=== PATIENT | female | born 1995 | race Caucasian/White ===

== ENCOUNTER 2016-11-12 01:18 | Emergency (ER) | payer BC ==
[~2016-11-12] VITALS: Ht 162.6 cm; Wt 49.4 kg
[2016-11-12 01:22] VITALS: TEMP 37; Ht 162.6 cm; Wt 49.4 kg
[2016-11-12] MEDS ORDERED: XYLOCAINE 1%/SOD BICARB 20 ML VIAL INFIL ONE (01:45)
[2016-11-12 03:12] VITALS: BP 108/77; PULSE 88; O2SAT 100
--- NOTE | 2016-11-12 06:22 | EMERGENCY ROOM VISIT NOTE ---
ED Visit Note First contact with patient: 01:35 CHIEF COMPLAINT: Finger laceration HISTORY OF PRESENT ILLNESS: This 21 year old female patient presents to the emergency department after cutting the right second finger on a beer bottle this evening. The bleeding has stopped. Denies weakness or numbness of the finger. The patient has full range of motion of the fingers. The patient rates the pain as dull and 7/10. The patient denies any other injuries. The patient' s tetanus shot is reportedly up to date. REVIEW OF SYSTEMS: A 6 system review of systems was completed with positives and pertinent negatives listed in the HPI. ALLERGIES: No known allergies MEDICATIONS: No chronic medications PMH: Otherwise healthy SOCIAL HISTORY: Student who lives locally PHYSICAL EXAM: Vital Signs: Reviewed Nurse's notes, vital signs stable. GENERAL : White female, in no acute distress, well developed, well nourished. SKIN: There is a 5 cm long laceration on the palmar aspect of the right 2nd finger. The edges gape apart with traction. There is no foreign material in the wound and it looks clean. There is no significant bleeding. No deep structures such as tendons, bones, or significant blood vessels are seen in the base of the wound. Extension and flexion of the finger is full and strong. Full range of motion of the wrist and other fingers. Capillary refill less than 2 seconds. Normal sensation to light and sharp touch. EMERGENCY DEPARTMENT COURSE: I examined the patient. Verbal consent was obtained to perform the procedure. Using sterile technique the wound was cleansed with Betadine. 4 ml of 1% buffered lidocaine was used to perform a digital block to anesthetize the patient. The area was sterilely draped. Once the patient was anesthetized, the wound was copiously irrigated under pressure with sterile saline. The wound was explored and there were no deep structures injured. The laceration was repaired using 9 simple interrupted 5-0 nylon sutures. The patient tolerated the procedure well. Hemostasis was achieved. The area was cleaned with sterile saline and dressed with bacitracin ointment and bandage. Wound care instructions were discussed and the patient was given discharge instructions as below. Allergies Coded Allergies: No Known Allergies (Unverified , 11/12/16) Vital Signs Date Time Temp Pulse Resp B/P Pulse Ox O2 Delivery O2 Flow Rate FiO2 11/12/16 03:12 88 20 108/77 100 11/12/16 01:22 37.0 92 16 128/88 96 Room Air Departure Information Impression Primary Impression: Finger laceration Dispostion Home / Self-Care Condition GOOD Forms HOME CARE DOCUMENTATION FORM, IMPORTANT VISIT INFORMATION Patient Instructions My [facility], ED Scar Tips to Minimize Additional Instructions Keep wound clean and dry. Do not allow any crusting or dried blood to accumulate on sutures. If this occurs, use a mild soap/water on a Q-tip to clean the wound. Do not use Peroxide to clean the wound as this can delay healing Use an antibiotic ointment like Bacitracin for 3-4 days, then let wound dry. You may bathe and shower as normal, but DO NOT SOAK the wound. Suture removal in about 8-10 days with your Family Doctor or in the ER. Return sooner for any signs of infection, increasing redness, swelling, or drainage.
== END 2016-11-12 02:54 | disposition home or self-care (01) ==
LOC: C.EDB 01:19 → C.EDA 02:54
DX: S61.212A Laceration without foreign body of right middle finger without damage to nail, initial encounter (principal); W25.XXXA Contact with sharp glass, initial encounter